=== PATIENT | female | born 1975 | race Caucasian/White ===

== ENCOUNTER → 2019-12-20 09:47 | Outpatient (CLI) | payer MEDICARE, OTHER, SELFPAY ==
--- NOTE | 2019-12-20 | DI.CT.S_ITS ---
PROCEDURE: CT LUMBAR SPINE WO CON INDICATIONS: low back pain TECHNIQUE: Noncontrast 3 mm thick sections acquired from the T12 level to the sacrum. Sagittal and coronal reformats were constructed. For radiation dose reduction, the following was used: automated exposure control. COMPARISON: [facility], RG, SPINE LUMB MIN 4VW, 08/09/2012, 10:48. [facility] [place], CR, XR LUMBAR SPINE WITH OBLIQUES, 12/17/2019, 9:17. [facility] Outside Film, RG, SPINE LUMB MIN 4VW, 05/05/2015, 17:05. [facility] Outside Film, CT, CT LUMBAR SPINE WITHOUT CONTRAST, 05/05/2015, 16:58. [facility] Outside Film, CT, CT LUMBAR SPINE WITHOUT CONTRAST, 01/06/2013, 9:23. FINDINGS: Image quality: Excellent. Bones: There is normal bony alignment. No acute vertebral body compression fractures. No suspicious lytic or blastic bony lesions. No pars defects. T12-L1: Disc height is normal. No central stenosis. No neural foraminal narrowing. No neural compression. L1-L2: Disc height is normal. No central stenosis. No neural foraminal narrowing. No neural compression. L2-L3: Disc height is normal. No central stenosis. No neural foraminal narrowing. No neural compression. L3-L4: Disc height is normal. No central stenosis. No neural foraminal narrowing. No neural compression. L4-L5: Disc height is normal. No central stenosis. No neural foraminal narrowing. No neural compression. L5-S1: Disc height is normal. Minimal, diffuse disc bulge. Mild left facet hypertrophy. Left L5 inferior facet-left sacral ala pseudoarthrosis noted. Osteoarthritic degenerative changes are noted in the left L5 inferior facet-left sacral ala pseudoarthrosis. No neural compression. Soft tissues: No retroperitoneal masses or hematomas. Visualized aorta is normal in caliber. IMPRESSION: 1. Osteoarthritic degenerative changes involving left L5 inferior facet-left sacral ala pseudoarthrosis. 2. No central stenosis. 3. No neural foraminal narrowing. 4. No neural compression. 5. No vertebral body compression fracture. Dictated by: Genie Wall MD, PhD on 12/20/2019 at 11:54 Approved by: Genie Wall MD, PhD on 12/20/2019 at 12:00
== END ==
PROVIDERS: PCP Physician Assistant Medical; Referring Provider Physical Medicine & Rehabilitation Pain Medicine; Visit Provider Physical Medicine & Rehabilitation Pain Medicine
DX: M54.5 Low back pain (principal); M47.817 Spondylosis without myelopathy or radiculopathy, lumbosacral region
CPT/HCPCS: 72131

== ENCOUNTER → 2020-04-19 09:33 | Outpatient (CLI) | payer MEDICARE, OTHER, SELFPAY ==
[2020-04-19 11:39] LABS: COVID19 -Nasal RAPID Negative (Negative)
== END ==
PROVIDERS: PCP Physician Assistant Medical; Visit Provider Nurse Practitioner
DX: Z01.812 Encounter for preprocedural laboratory examination (principal); Z20.822 Contact with and (suspected) exposure to COVID-19
CPT/HCPCS: 87635; C9803

== ENCOUNTER 2020-04-22 15:58 | Observation (INO) | payer MEDICARE, OTHER, SELFPAY ==
[2020-04-21] VITALS (20 sets, daily range): BP systolic 122–156; BP diastolic 84–104; PULSE 84–104; RESP 16–29; TEMP 36.1–37.8; O2SAT 95–100; BMI 25.8
--- NOTE | 2020-04-21 | PATH_ITS ---
[facility] Accession Number: [id number] . 01 Material submitted: . uterus - UTERUS, BILATERAL FALLOPIAN TUBES AND OVARIES . 01 Clinical history: . FALLOPIAN TUBES ARE PARTIAL PATIENT HAD PREVIOUS TUBAL LIGATION . 02 Diagnosis: Uterus, Bilateral Fallopian Tubes and Ovaries, Laparoscopic Supracervical Hysterectomy (Weight 49 grams): Endometrium with cystic atrophy; negative for glandular hyperplasia, cytologic atypia or malignancy. Myometrium with no significant histomorphologic abnormality. Uterine serosa with no significant histomorphologic abnormality. Ovary #1 with patchy capsular adhesions, nonspecific, and with scattered benign follicular cysts, some with a luteinized lining, ranging from 3-12 mm in greatest dimension. Detached fallopian tube with no significant histomorphologic abnormality. Portions of fimbria attached to one ovary with no significant histomorphologic abnormality. No endometriosis identified. [facility] 04/29/2020 1425 Local . 02 Electronically signed: . Paula Medina MD, Pathologist NPI- [id number] . 01 Gross description: . The specimen is received in formalin, labeled uterus, bilateral fallopian tubes and ovaries and consists of a 49-gram supracervically resected and disrupted uterus measuring 6.0 x 5.0 x 4.0 cm. The serosa is moy-pink and smooth. Sectioning reveals a moy-pink endometrium measuring 0.1 cm in thickness. The myometrium is moy-pink and trabeculated measuring 2.2 cm in thickness. There are two attached ovaries measuring 3.5 x 3.5 x 0.9 cm and 3.2 x 2.0 x 1.2 cm. The external surface is moy-pink and cerebriform. Sectioning reveals multiple smooth-walled serous-filled cysts ranging from 0.3 to 1.2 cm. No papillary excrescences are identified. One ovary has a portion of attached fimbriated fallopian tube measuring 2.0 cm in length by 0.6 cm in diameter. Also received is a detached fallopian tube measuring 2.8 cm in length by 0.7 cm in diameter. The serosa is pink-purple and smooth. Sectioning reveals a moy mucosa and a stellate lumen measuring 0.2 cm in diameter. Computer Support Technician sections are submitted. . . A1-A2: lower uterine segment and endometrium. A3-A4: full-thickness sections of uterus. A5: customer operations representative ovary. A6: customer operations representative other ovary. A7: fimbria attached to other ovary. A8: customer operations representative detached fallopian tube with bisected fimbria. (EA:[id number]) A9-A11: additional sections of uterus. A12-A13: additioanl sections of ovary. A14: sections of adnexal soft tissue. (EA:[id number]) /MRV 04/25/2020 1624 Local . 02 Pathologist provided ICD-10: N80.9, N94.6 . 02 CPT . 272451 Performed at: [facility] [address] [id number] MD Pravin Kohler MD Phone: [phone] Performed at: 02 [facility] [address] [place] [id number] MD Annmarie Francisco MD Phone: [phone]
[2020-04-21] MEDS: SCOPOLAMINE 1 PATCH TOP (07:09)
[2020-04-21] MEDS: ACETAMINOPHEN 325 MG TABLET 975 MG PO (07:10)
[2020-04-21] MEDS: LACTATED RINGERS 1,000 ML 42 ML IV (07:15)
--- NOTE | 2020-04-21 07:36 | PM.PREOP ---
Pre-operative Note COVID-19 COVID-19 status: Negative Result date/Date tested (Pos, Neg/Pending): 04/19/20 Interval Note History & Physical reviewed/Exam performed by Physician: Yes Changes to H&P: No H&P completed within 30 days and has changed as indicated here:: 04/17/20
[2020-04-21] MEDS: CEFAZOLIN 2 GM/100 ML FROZ.PIGGY IV (07:45)
--- NOTE | 2020-04-21 08:29 | SUR.OPER ---
Lithotomy on padded OR bed. Arabi Pad Positioner under torso. Head on pillow, arms padded and tucked at sides. Legs secured in padded yellow fins stirrups.
[2020-04-21] MEDS: BUPIVACAINE 0.5% W/ EPI (PF) 30 ML VIAL INJ (08:40)
[2020-04-21] MEDS: ROPIVACAINE 0.2% PF 2 MG/ML 10ML AMP 20 ML INJ (08:52)
--- NOTE | 2020-04-21 09:30 | P.OP_ITS ---
Operative Date/Time/Diagnoses Date of procedure: 04/21/20 Time of procedure: 09:30 Pre-op diagnosis: Severe dysmenorrhea Endometriosis Pelvic pain Post-op diagnosis: same Procedure & Clinicians Procedure: Procedures Operation Date: 04/21/20 07:45 Actual Procedures Side Surgeon p Laparoscopic Supracervical Hysterectomy WITH BILATERAL SALPINGO-OOPHORECTOMY Not Applicable Mireya Shah MD Indications: Severe dysmenorrhea Pelvic pain Endometriosis Surgeon: Mireya Shah Senior Manager Asset Protection: Yamileth Choudhury Anesthesia Type: General and Local Operative Notes Findings: Seven week size anteverted uterus Normal ovaries bilaterally Normal partial tubes bilaterally Normal liver Status post appendectomy and cholecystectomy Some pelvic congestion Closure Type: primary Specimen(s): left tube & ovary (partial tube) and right tube & ovary (Partial tube) Applied: catheter (Removed at the end of the case) Estimated blood loss (mL): 10 Blood products transfused: none Procedure in detail: The patient was taken to the operating room where she was placed in the dorsal supine position. After adequate general endotracheal anesthesia was achieved, she was placed in the dorsal lithotomy position, and p repped and draped in the usual sterile fashion. A timeout was performed. A bivalve speculum was placed into the vagina and the anterior lip of the cervix grasped with a single-tooth tenaculum. The cervical os was sequentially dilated until the ZUMI uterine manipulator could pass easily into the endometrial cavity. The single-tooth tenaculum was removed from the anterior lip of the cervix, and the bivalve speculum was removed from the vagina. Attention was then turned to the abdomen where 6 mL of half percent Marcaine with epinephrine were injected in the umbilical fold. A 5 mm incision was made. The veress needle was placed into the peritoneal cavity, and its placement confirmed by aspiration and drop test. The abdominal cavity was insufflated with 4.1 L of CO2. The veress needle was removed. A 5 mm trocar was placed without difficulty. 2 other incisions were made 4 cm lateral to the midline after 5 mL of half percent Marcaine with epinephrine were injected. These were 5 mm incisions. Two, 5 mm trochars were placed under direct visualization. The right partial tube and ovary were grasped with an atraumatic grasper. Using the plasma kinetic with settings of 40 W the mesosalpinx was cauterized and cut all the way down to the cornua of the uterus. The cornua of the uterus was then grasped with an atraumatic grasper. The round ligament and broad ligament were cauterized and cut with plasma kinetic. Hemostasis was achieved. The bladder flap was created using the plasma kinetic with cautery and cut intermediate across. The uterine arteries on the right side were extensively cauterized with the plasma kinetic. All of this was repeated on the left side. The remainder of the bladder flap was created using the plasma kinetic, and the bladder taken down off the lower uterine segment and cervix. Using the Linaloop, the cervix was amputated from the uterus 2 cm above the uterosacral ligaments, after the ZUMI uterine manipulator was removed from the uterus and a moistened sponge stick was placed in the vagina. The endocervical 6 mL canal was extensively cauterized with the PlasmaKinetic. 6 mL of half percent Marcaine with epinephrine were injected above the pubic symphysis. A 12mm incision was made. A 12 mm trocar was placed under direct visualization. A large Endobag was placed through the suprapubic trocar and the uterus, partial tubes and ovaries were placed into the Endobag. The edges of the bag were brought up through the incision. The fascial incision was extended about half a cm on each side. An Eze was placed into the endobag. The uterus was grasped with a Cheikh. The uterus was morcellated in one piece. The partial tubes and ovaries were also removed from the Endobag. The Endobag was removed from the peritoneal cavity w ith the Eze. The pelvis was copiously irrigated with warm normal saline. No bleeding was noted. 20 mL of 0.2% ropivacaine were placed over the pelvic pedicles. The instruments were removed from the abdomen. The CO2 was allowed to escape. The suprapubic incision was closed on the fascia with 0 Vicryl. The subcutaneous layer was closed with 2 simple interrupted sutures with 2-0 Vicryl. All of the incisions were closed with 4-0 Biosyn in a subcuticular fashion. Steri strips, 2x2's and Allevyn dressings were placed over the incisions. The moistened sponge stick was removed from the vagina. Sponge, lap, and instrument counts were correct x 2. The patient tolerated the procedure well, was taken to PACU in stable condition. The fire control assistant was necessary to run the camera and do the opposite side of the uterus as well as retract aside that the primary surgeon was working on. She created the bladder flap half way across from her side. She assisted in visualization using the camera and a probe to keep the bowel out of the pelvis. She retracted the subcutaneous tissue away when the fascia was being extended on the suprapubic incision. She retracted while the fascial incision was being closed. Complications: none Post-operative Condition: stable Disposition: PACU Plan for aftercare: To Acute Care after Recovery
[2020-04-21] MEDS: fentaNYL 100 MCG/2 ML INJ IV ×2 (10:00→10:12)
--- NOTE | 2020-04-21 11:17 | SUR.PHASEI ---
Pt was transported to room 221. Pt developed increase pain and nurse was delayed with another pt. Removed 100mcg of fentanyl and admistered 25mcg to help pt control pain 10/21. Pt was monitored by this RN and settled by myself and 2 lithographers printer's. VSS with sats maintaining at 95 on RA. I departed with pt in stable, comfortable condition. Update on medication was given to receiving RN.
[2020-04-21] MEDS: LACTATED RINGERS 1,000 ML 100 ML IV (11:51)
--- NOTE | 2020-04-21 11:57 | PC.NURSE ---
Addendum entered by Tammy Dhillon R.N. 04/21/20 14:46: Patient resting with eyes closed. O2 at 98%. Home medication administered. Patient reports pain in her abdomen then falls back asleep. remains bedside. Will continue to monitor. Addendum entered by Tammy Dhillon R.N. 04/21/20 13:36: MD contacted regarding patients home medication, given the verbal to administer Movantik today once verified. Medication tubed to pharmacy. Patient is moaning in pain, scratching her back until its red (due to anxiety per patient and ). LR infusing at 100 cc/hr, scheduled medications administered. Dilaudid administered, Klonopin administered as well. Patient on continuous pulse ox, lungs clear, 100% on room air. Abdomen soft, tender, four allyvn dressing, CDI. Patient up to restroom twice, voiding. SCD's on bilaterally. Original Note: Patient reports she is allergic to Reglan, submitted request for D/C.
[2020-04-21] MEDS: ACETAMINOPHEN 325 MG TABLET 650 MG PO ×2 (12:19→18:03)
[2020-04-21] MEDS: KETOROLAC 30 MG/ML VIAL IV ×2 (12:20→18:02)
[2020-04-21] MEDS: GABAPENTIN 600 MG TABLET PO (12:27)
[2020-04-21] MEDS: HYDROMORPHONE 1 MG INJ 0.5 MG IV (13:26)
[2020-04-21] MEDS: clonazePAM 0.5 MG TABLET 1 MG PO ×2 (13:28→19:10)
[2020-04-21] MEDS: NALOXEGOL 25 MG 25 EACH PO (14:06)
[2020-04-21] MEDS: GUANFACINE 1 MG TABLET 3 MG PO (18:03)
[2020-04-21] MEDS: MAG HYDROX/ALUMINUM/SIMETH SUS 20 ML, LIDOCAINE VISCOUS 2% 15 ML PO (18:54)
[2020-04-21] MEDS: ONDANSETRON 4 MG/2 ML INJ IV (18:54)
[2020-04-21] MEDS: cloNIDine 0.1 MG TABLET 0.2 MG PO (23:25)
[2020-04-21] MEDS: DOCUSATE 250 MG CAPSULE PO (23:25)
[2020-04-21] MEDS: GABAPENTIN 300 MG CAPSULE 900 MG PO (23:25)
[2020-04-21] MEDS: BUSPIRONE 15 MG TABLET PO (23:26)
--- NOTE | 2020-04-21 23:31 | PC.NURSE ---
Patient had two episodes of emesis this evening. Was given IV PRN Zofran 4m at 1900 with some relief. Had second episode of nausea and vomiting around 1999. Patient is allergic to almost every other form of antiemetic. New 22 gauge IV placed in left arm due to site compromise, this new site also became occluded and a third 22 guage IV was placed in the right arm with LR running at 100cc/hr. Patient was also complaing of severe GERD and a GI cocktail of maalox and lidocine was ordered and given.
--- NOTE | 2020-04-22 00:03 | PC.NURSE ---
Pt. C/O nausea & vomiting, requested to have MD receptionist/telephone operator to be notified that she takes 8 mg. of Zofran at home. Also C/O anxiety, tool grinder operator surface doctor for Dr. Shah notified via answering service, awaiting call back. Will monitor.
[2020-04-22] MEDS: ACETAMINOPHEN 325 MG TABLET 650 MG PO ×3 (00:09→13:43)
[2020-04-22] MEDS: KETOROLAC 30 MG/ML VIAL IV ×2 (00:10→06:08)
[2020-04-22] MEDS: MAGNESIUM HYDROXIDE 30 ML UDC PO (00:14)
[2020-04-22] MEDS: LACTATED RINGERS 1,000 ML 100 ML IV ×2 (00:16→11:19)
--- NOTE | 2020-04-22 00:29 | CM.MNRNOTE ---
pigment pumper doctor called the second time that pt. continues to vomit 400 cc emesis at this time. Awaiting call back.
[2020-04-22] MEDS: ONDANSETRON 8 MG in SODIUM CHLORIDE 0.9% 50 ML 216 ML IV (02:06)
[2020-04-22] MEDS: LORazepam 2 MG/ML INJ 0.5 MG IV (02:36)
[2020-04-22 03:11] VITALS: BP 141/73; PULSE 88; RESP 16
[2020-04-22 03:14] VITALS: BP 141/73; PULSE 88; RESP 16; TEMP 36.9; O2SAT 96
[2020-04-22] MEDS: HYDROMORPHONE 1 MG INJ 0.5 MG IV ×3 (04:32→14:43)
[2020-04-22] MEDS: PANTOPRAZOLE 40 MG TABLET PO (05:01)
[2020-04-22 05:33] LABS: Add Manual Diff / Slide Review NO; Basophils Absolute Auto 100 /uL (0-100); Basophils Percent Auto 0.5 % (0-2); Eosinophils Absolute Auto 0 /uL (0-450); Eosinophils Percent Auto 0.2 % (2-4); Hematocrit 36.6 % (36-46); Hemoglobin 12.2 g/dL (12.0-16.0); Lymphocytes Absolute Auto 2600 /uL (1100-4500); Lymphocytes Percent Auto 23.6 % (25-40); Mean Corpuscular HGB Conc 33.3 % (30-36); Mean Corpuscular Hemoglobin 29.3 PG (26-34); Mean Corpuscular Volume 87.9 fL (80-100); Monocytes Absolute Auto 1000 /uL (0-900); Monocytes Percent Auto 8.9 % (3-14); Neutrophils Absolute Auto 7200 /uL (1500-7000); Neutrophils Percent Auto 66.8 % (50-75); Platelet Count 286 X10^3/uL (150-400); Red Blood Cell Count 4.16 X10^6/uL (4.0-5.2); White Blood Cell Count 10.8 X10^3/uL (4.5-11.0)
[2020-04-22 08:00] VITALS: BP 129/81; PULSE 112; RESP 18; TEMP 36.6; O2SAT 95
[2020-04-22] MEDS: lamoTRIgine 100 MG TABLET 400 MG PO (09:26)
[2020-04-22] MEDS: cloNIDine 0.1 MG TABLET 0.2 MG PO (09:26)
[2020-04-22] MEDS: GABAPENTIN 600 MG TABLET PO ×2 (09:27→13:43)
[2020-04-22] MEDS: DOCUSATE 250 MG CAPSULE PO (09:27)
[2020-04-22] MEDS: BUSPIRONE 15 MG TABLET PO (09:27)
[2020-04-22] MEDS: NALOXEGOL 25 MG 25 EACH PO (09:28)
[2020-04-22] MEDS: clonazePAM 0.5 MG TABLET 1 MG PO (09:31)
--- NOTE | 2020-04-22 10:05 | CM.DANOTE ---
DCP ASSESSMENT: Patient is a 44 year-old female who is at the hospital in a OPB status post laparascopic supracervical hysterectomy. Per chart review PCP is Elma Reddy. Primary payer is Medicare and [employer]. HOOP ROLLS OPERATOR Student attempted to see patient at bedside she was resting. Initially she agreed to answer questions but, fell asleep unable to complete assessment at this time due to being somnolent. Let patient rest at this time information has been gathered via chart review and nursing interview. Patient has a history of anxiety and depression and currently has medications for management, patient appears to be independent with ADL's. PLAN: Anticipate D/C to home. CM Team to continue to follow patient and will attempt to meet with patient. YASSINE Chiang Student YASSINE Card Discharge Planning/Care Management CM Discharge Assessment Start: 04/22/20 10:02 Freq: Status: Active Protocol: Document 04/22/20 10:03 AL (Rec: 04/22/20 10:04 AL [id number]) Discharge Planning Assessment Assigned Mutuel Cashier YASSINE Chiang Student Contact Information Tyler Massey, # ( [phone] Advance Directives? No History Provided By Medical Record Prior Living Arrangements House Household Members spouse Independent with ADL's Yes Barriers to Discharge No Discharge Plan Home Whiteboard Updated in Patient Room with Yes name and ext. # of Mutuel Cashier Review Status In Process
[2020-04-22] MEDS: IBUPROFEN 600 MG TABLET PO (13:42)
--- NOTE | 2020-04-22 14:30 | CM.DPC ---
DCP Con't: POINTER HELPER Student met with patient and at bedside. Patient was alert and oriented sitting up in bed. Educated patient and on the role of SW and d/c planning. Patient confirmed PCP is Elma Reddy. Patient reported being independent in ADL?s including driving. Patient reported having a good support environment and support system, and 18 year-old. Tyler will be providing transportation. PLAN: Anticipate D/C home when medically stable. CM Team to continue to follow. YASSINE Card MSW Student
[2020-04-22 15:30] VITALS: BP 146/77; PULSE 80; RESP 16; TEMP 36.4; O2SAT 100
[2020-04-22] MEDS: ONDANSETRON 4 MG/2 ML INJ 8 MG (15:54)
[2020-04-22] MEDS: MAG HYDROX/ALUMINUM/SIMETH SUS 20 ML, LIDOCAINE VISCOUS 2% 15 ML PO (18:06)
[2020-04-22] MEDS: OXYCODONE IR 10 MG TABLET PO (18:06)
[2020-04-22] MEDS: GUANFACINE 1 MG TABLET 3 MG PO (18:07)
--- NOTE | 2020-04-22 19:10 | PC.NURSE ---
Discharge/Evening Shift Note- Patient discharged home per MD. Discharge instructions and education reviewed with patient and signed. IV line removed and bandaid applied. Allevyn dressings x4 checked and found C/D/I. Patient given Oxycodone 10mg PO for pain control during car ride home. Patients home medications retrieved from pharmacy. Patient and spouse packed up personal belongings. Patient left via wheelchair to private car at 1825.
== END 2020-04-22 16:25 | disposition home or self-care (01) ==
LOC: OR 04-23 11:36 → AC 04-23 11:36
PROVIDERS: Admitting Provider Obstetrics & Gynecology; PCP Physician Assistant Medical; Referring Provider Physician Assistant Medical; Visit Provider Obstetrics & Gynecology
PROC: 0UT94ZL Resection of Uterus, Supracervical, Percutaneous Endoscopic Approach (ICD-10-PCS; CPT 58542; principal; 2020-04-21 07:45)
DX: N94.6 Dysmenorrhea, unspecified (principal); N80.9 Endometriosis, unspecified; F41.9 Anxiety disorder, unspecified; K21.9 Gastro-esophageal reflux disease without esophagitis; K31.84 Gastroparesis
CPT/HCPCS: 58542; 36415; 85025; G0378; J0330; J0690; J1100; J1170; J1885; J2060; J2250; J2405; J2704; J2795; J3010